=== PATIENT | male | born 1950 | race Caucasian/White ===

== ENCOUNTER 2016-10-24 07:24 | Day surgery (SDC) | payer MEDICARE, OTHER ==
[2016-10-19 16:31] LABS: HEMATOCRIT 39.5 % (40.0-51.0); HEMOGLOBIN 13.5 g/dL (13.6-17.8)
[2016-10-19 16:41] LABS: BUN (BLOOD UREA NITROGEN) 12 MG/DL (6-23); CHLORIDE, SERUM 112 MMOL/L (96-112); CO2 (CARBON DIOXIDE) 27 MMOL/L (24-34); CREATININE 1.35 MG/DL (0.70-1.30); GFR AFRICAN AMERICAN 63 ML/MIN (>=60); GFR NON AFRICAN AMERICAN 54 ML/MIN (>=60); GLUCOSE, SERUM 76 MG/DL (60-99); SODIUM, SERUM 145 MMOL/L (135-148)
--- NOTE | ~2016-10-24 | OP ---
Record Of [facility] [address]. [address] NAME: SIMIN STRONG : 50 STATUS : REG [facility] [place] PAT#: [id number] AGE: 66 ADM/REG DATE : 10/24/16 MR#: [id number] REPORT SERV DATE: 10/25/16 DICTATED BY: ODALIS LIPSCOMB DATE: 10/24/16 REPORT STATUS : Draft TRANSCRIBED BY: MODL DATE: 10/24/16 DATE OF PROCEDURE: 10/24/2016 PREOPERATIVE DIAGNOSIS: Seizure disorder. POSTOPERATIVE DIAGNOSIS: Seizure disorder. PROCEDURE: Vagal nerve stimulator exchange and programming. ATTENDING SURGEON: Odalis Lipscomb MD CHIEF RESIDENT: Salty Cedillo MD ANESTHESIA: General with local. IV FLUIDS: 500 mL. ESTIMATED BLOOD LOSS: 2 mL COMPLICATIONS: None. COUNTS: Correct. SPECIMEN: None. DESCRIPTION OF PROCEDURE: The patient brought to the operating room, placed supine on the operating table. Anesthetic was administered and endotracheal intubation achieved. A shoulder roll placed. The chest and neck were prepped and draped in standard sterile fashion. A time-out was held. Incision made through the prior vertical incision in the left chest. Blunt dissection was used to carry down to the vagal nerve stimulator, which was identified in the capsule and the capsule was opened. Stimulator was withdrawn and the leads appeared to be intact with no injuries or kinks. The stimulator was exchanged and lead reattached. The subcutaneous space was expanded to accommodate the new larger stimulator. Vagal nerve stimulator was programmed with the following settings output 1.25, sequential frequency of 30, pulse width 250, signal on time 30, signal off time 1.8, output 1.50, pulse width 500, signal on time 60, lead impedance okay at 2676 ohms. The stimulator was replaced in subcutaneous pocket and incision closed at subcutaneous level with interrupted 3-0 Vicryl and subcuticularly with 4-0 Monocryl in subcuticular fashion. Local anesthetic was administered superficially. Dermabond and sterile dressing were applied and the patient was extubated and transferred to recovery area in stable condition. DICTATED BY: Salty Cedillo MD ND/SHASHA Record Of [facility] [address] [place]. [address] NAME: SIMIN STRONG : 50 STATUS : REG [facility]#: [id number] AGE: 66 ADM/REG DATE : 10/24/16 MR#: [id number] REPORT SERV DATE: 10/25/16 DICTATED BY: ODALIS LIPSCOMB DATE: 10/24/16 REPORT STATUS : Draft TRANSCRIBED BY: MODL DATE: 10/24/16 Odalis Lipscomb M.D. / [id number] CC: Christian Ortiz M.D.
[~2016-10-24 07:24] MED LIST: ACET500CAP PO; AT25 PO; CALTRA600D PO; CLARINEX5 MG PO; CLARIT10 PO; DESITIN TOP; DIPHENCR TOP; DOCUSOFT S100 MG PO; FOLIC PO; GAS RELIEF PO; GGDM5ML PO; KEPPRA XR750 MG PO; LAMIS15 TOP; MELA3 PO; MOBIC7.5 PO; MULTIPLE VIT PO; NEO-OINT TOP; NORV25 PO; PHENADOZ25 MG RE; PRILO PO; SYN.025B PO; TAB-A-VITE PO; VIMPAT100 MG PO; VIMPAT200 MG PO; ZANTAC150 MG PO; ZONEGRAN PO
== END 2016-10-24 23:59 | disposition home or self-care (01) ==
LOC: SDC 07:24
PROVIDERS: Specialist
PROC: 0JH60BZ Insertion of Single Array Stimulator Generator into Chest Subcutaneous Tissue and Fascia, Open Approach (ICD-10-PCS; 2016-10-24)
PROC: 0JPT0MZ Removal of Stimulator Generator from Trunk Subcutaneous Tissue and Fascia, Open Approach (ICD-10-PCS; principal; 2016-10-24 08:15)
DX: G40.909 Epilepsy, unspecified, not intractable, without status epilepticus (principal); F88 Other disorders of psychological development; I12.9 Hypertensive chronic kidney disease with stage 1 through stage 4 chronic kidney disease, or unspecified chronic kidney disease; N18.9 Chronic kidney disease, unspecified; E03.9 Hypothyroidism, unspecified; F50.9 Eating disorder, unspecified; B19.10 Unspecified viral hepatitis B without hepatic coma; K21.9 Gastro-esophageal reflux disease without esophagitis; K64.9 Unspecified hemorrhoids; M19.90 Unspecified osteoarthritis, unspecified site; Z88.1 Allergy status to other antibiotic agents; Z88.8 Allergy status to other drugs, medicaments and biological substances; Z79.1 Long term (current) use of non-steroidal anti-inflammatories (NSAID); Z79.899 Other long term (current) drug therapy; Z98.890 Other specified postprocedural states
CPT/HCPCS: 36415; 80048; 85014; 85018; 93005; C1767; J0690; J2250; J2405; J2710; J3010